=== PATIENT | female | born 1995 | race Caucasian/White ===

== ENCOUNTER 2016-05-24 14:09 | Outpatient (CLI) | payer OTHER ==
--- NOTE | 2016-05-24 17:24 | DIAGNOSTIC IMAGING REPORT ---
PROCEDURE: CT HEAD WITHOUT CONTRAST INDICATION: History of congenital hydrocephalous. TECHNIQUE: Noncontrast axial images with sagittal and coronal reformations. COMPARISON: Compared to a head CT on 08/25/2014. FINDINGS: There are postoperative changes and craniotomies of the bilateral frontal parietal calvaria for cranial stenosis (coronal, frontal, and metopic sutures). There has been interim placement of a stent located in the region of the right transverse venous sinus. There is a right ventriculoperitoneal shunt tube which ends in the region of the frontal horn of the left lateral ventricle. This is associated mild encephalomalacia of the right frontal lobe. Brain and ventricles are otherwise normal and there is no evidence of hydrocephalous. Sinuses and mastoids are normal. IMPRESSION: 1. Postoperative changes of the calvaria consistent with cranial stenosis surgery (no change). 2. Right ventriculoperitoneal shunt tube ends in the frontal horn of the left lateral ventricle (no change). 3. Interim placement of vascular stent in the right transverse venous sinus. 4. Otherwise negative head CT. No evidence of hydrocephalous. All CT scans at this facility use dose modulation, iterative reconstruction, and/or weight-based dosing when appropriate to reduce radiation dose to as low as reasonably achievable.
== END 2016-05-24 23:00 ==
LOC: CT SRH 14:09
DX: Q03.9 Congenital hydrocephalus, unspecified (principal); Z95.820 Peripheral vascular angioplasty status with implants and grafts